=== PATIENT | male | born 1980 | race African-American/Black ===

== ENCOUNTER → 2017-02-13 | Outpatient (CLI) | payer MEDICAID ==
[2017-02-13 15:09] LABS: ABSOLUTE BASOPHILS # (AUTO) 0.1 10^3/uL (0.0-0.2); ABSOLUTE EOSINOPHILS # (AUTO) 0.2 10^3/uL (0.0-0.6); ABSOLUTE LYMPHOCYTES (AUTO) 1.1 10^3/uL (0.5-4.7); ABSOLUTE MONOCYTES (AUTO) 0.5 10^3/uL (0.1-1.4); ABSOLUTE NEUT (AUTO) 1.6 10^3/uL (1.7-8.2); BASOPHILS % (AUTO) 1.5 % (0-2); EOSINOPHILS % (AUTO) 6.5 % (0-6); HEMATOCRIT 33.1 % (37.9-51.0); HEMOGLOBIN 10.9 g/dL (13.5-17.0); HGB HCT DIFFERENCE -0.4; MEAN CORPUSCULAR HEMOGLOBIN 25.7 pg (27.0-33.4); MEAN CORPUSCULAR VOLUME 78 fl (80-97); MONOCYTES % (AUTO) 15.3 % (3-13); RED BLOOD COUNT 4.25 10^6/uL (4.35-5.55); RED CELL DISTRIBUTION WIDTH 16.4 % (11.5-14.0); SEGMENTED NEUTROPHILS % (AUTO) 45.7 % (42-78); WHITE BLOOD COUNT 3.4 10^3/uL (4.0-10.5)
[2017-02-13 15:17] LABS: PROTHROMBIN TIME 15.4 SEC (11.4-15.4)
[2017-02-13 15:29] LABS: ALANINE AMINOTRANSFERASE 21 U/L (21-72); ALBUMIN 3.7 g/dL (3.5-5.0); ALKALINE PHOSPHATASE 74 U/L (38-126); ANION GAP 11 (5-19); ASPARTATE AMINO TRANSFERASE 17 U/L (17-59); BILIRUBIN,DIRECT 0.1 mg/dL (0.0-0.4); BILIRUBIN,TOTAL 0.9 mg/dL (0.2-1.3); BLOOD UREA NITROGEN 12 mg/dL (7-20); CALCIUM 9.2 mg/dL (8.4-10.2); CARBON DIOXIDE 29 mmol/L (22-30); CHLORIDE 104 mmol/L (98-107); CHOLESTEROL 151.84 mg/dL (0-200); CREATININE RESULT 0.56 mg/dL (0.52-1.25); Direct HDL 38 mg/dL (>40); GLUCOSE 90 mg/dL (75-110); POTASSIUM 4.5 mmol/L (3.6-5.0); SODIUM 144.1 mmol/L (137-145); TOTAL PROTEIN 7.2 g/dL (6.3-8.2); TRIGLYCERIDES 66 mg/dL (<150)
[2017-02-13 15:40] LABS: DIRECT LDL 81 mg/dL (<100)
== END ==
LOC: OD 14:10
PROVIDERS: ATTEND Family Medicine
DX: Z79.01 Long term (current) use of anticoagulants (principal); Z13.228 Encounter for screening for other metabolic disorders
CPT/HCPCS: 36415; 80053; 80061; 84443; 85025; 85610

== ENCOUNTER 2017-03-23 10:44 | Outpatient (CLI) | payer MEDICAID ==
[~2017-03-23 10:44] MED LIST: FERUMOXYTOL (NON-ESRD) 510 MG/NS 100 ML IV PRN; NORMAL SALINE 250 ML IV PRN
[2017-03-23 11:13] VITALS: BP 108/69
== END 2017-03-23 12:43 | disposition home or self-care (01) ==
LOC: 5TH 10:44 → II 10:44
PROVIDERS: ATTEND Internal Medicine
PROC: 3E033GC Introduction of Other Therapeutic Substance into Peripheral Vein, Percutaneous Approach (ICD-10-PCS; principal; 2017-03-23)
DX: N18.2 Chronic kidney disease, stage 2 (mild) (principal); D63.1 Anemia in chronic kidney disease
CPT/HCPCS: 96365; Q0138; 96367

== ENCOUNTER 2017-03-30 13:20 | Outpatient (CLI) | payer MEDICAID ==
[2017-03-30 14:32] VITALS: BP 102/50
== END 2017-03-30 14:36 | disposition home or self-care (01) ==
LOC: II 13:20 → 5TH 13:21 → II 14:36
PROVIDERS: ATTEND Internal Medicine
PROC: 3E033GC Introduction of Other Therapeutic Substance into Peripheral Vein, Percutaneous Approach (ICD-10-PCS; principal; 2017-03-30)
DX: N18.2 Chronic kidney disease, stage 2 (mild) (principal); D63.1 Anemia in chronic kidney disease
CPT/HCPCS: 96365; Q0138

== ENCOUNTER → 2017-04-12 | Outpatient (CLI) | payer MEDICAID ==
[2017-04-12 15:35] LABS: ABSOLUTE BASOPHILS # (AUTO) 0.1 10^3/uL (0.0-0.2); ABSOLUTE EOSINOPHILS # (AUTO) 0.4 10^3/uL (0.0-0.6); ABSOLUTE LYMPHOCYTES (AUTO) 2.3 10^3/uL (0.5-4.7); ABSOLUTE MONOCYTES (AUTO) 0.8 10^3/uL (0.1-1.4); ABSOLUTE NEUT (AUTO) 2.4 10^3/uL (1.7-8.2); BASOPHILS % (AUTO) 0.9 % (0-2); EOSINOPHILS % (AUTO) 6.1 % (0-6); HEMATOCRIT 32.2 % (37.9-51.0); HEMOGLOBIN 10.3 g/dL (13.5-17.0); HGB HCT DIFFERENCE -1.3; LYMPHOCYTES % (AUTO) 38.3 % (13-45); MEAN CORPUSCULAR HEMOGLOBIN 25.8 pg (27.0-33.4); MEAN CORPUSCULAR HGB CONC 32.1 g/dL (32.0-36.0); MEAN CORPUSCULAR VOLUME 80 fl (80-97); MONOCYTES % (AUTO) 14.1 % (3-13); RED CELL DISTRIBUTION WIDTH 15.8 % (11.5-14.0); SEGMENTED NEUTROPHILS % (AUTO) 40.6 % (42-78)
[2017-04-12 16:00] LABS: ALANINE AMINOTRANSFERASE 19 U/L (21-72); ALBUMIN 3.7 g/dL (3.5-5.0); ALKALINE PHOSPHATASE 60 U/L (38-126); ANION GAP 9 (5-19); ASPARTATE AMINO TRANSFERASE 19 U/L (17-59); BILIRUBIN,DIRECT 0.3 mg/dL (0.0-0.4); BILIRUBIN,TOTAL 0.7 mg/dL (0.2-1.3); BLOOD UREA NITROGEN 17 mg/dL (7-20); C-REACTIVE PROTEIN 41.4 mg/L (<10.0); CALCIUM 9.1 mg/dL (8.4-10.2); CARBON DIOXIDE 31 mmol/L (22-30); CHLORIDE 101 mmol/L (98-107); CREATININE RESULT 0.64 mg/dL (0.52-1.25); GLUCOSE 85 mg/dL (75-110); POTASSIUM 4.1 mmol/L (3.6-5.0); SODIUM 140.6 mmol/L (137-145); TOTAL PROTEIN 7.6 g/dL (6.3-8.2)
--- NOTE | 2017-04-12 16:11 | RADIOLOGY REPORT (SQ) ---
EXAM DESCRIPTION: PELVIS AP COMPLETED DATE/TIME: 04/12/2017 3:43 pm REASON FOR STUDY: PRESSURE ULCER RT BUTTOCK STAGE IV L89.314 PRESSURE ULCER OF RIGHT BUTTOCK, STAGE 4 COMPARISON: None. NUMBER OF VIEWS: One view TECHNIQUE: AP Pelvis LIMITATIONS: None. FINDINGS: MINERALIZATION: Normal. HIPS: No acute fracture or dislocation. No worrisome bone lesions. Advanced degenerative changes of the right and left hip. PELVIS AND SACRUM: No acute fracture or dislocation. No worrisome bone lesions. PUBIS AND ISCHIUM: No acute fracture. No definite destructive bony lesions are identified. LOWER LUMBAR SPINE: No significant findings as visualized. SOFT TISSUES: Appears to be a soft tissue defect seen posteriorly adjacent to the right ischium. The re appears to be packing material within this soft tissue defect. OTHER: No other significant finding. IMPRESSION: Soft tissue defect seen adjacent to the right ischium with packing material. No definit e destructive bony lesions are identified. Advanced degenerative changes of the hips, right greater the left. No acute fracture or dislocation identified TECHNICAL DOCUMENTATION: JOB ID: [id number] [employer]- All Rights Reserved
[2017-04-12 16:22] LABS: ERYTHROCYTE SEDIMENTATION RATE 35 mm/hr (0-15)
== END ==
LOC: WC 15:00
PROVIDERS: ATTEND Nurse Practitioner Family
DX: L89.314 Pressure ulcer of right buttock, stage 4 (principal)
CPT/HCPCS: 36415; 72170; 80053; 85025; 85652; 86140

== ENCOUNTER → 2017-04-17 | Outpatient (CLI) | payer MEDICAID ==
--- NOTE | 2017-04-18 09:23 | RADIOLOGY REPORT (SQ) ---
EXAM DESCRIPTION: NM 3 PHASE BONE SCAN COMPLETED DATE/TIME: 04/17/2017 4:38 pm REASON FOR STUDY: PRESSURE ULCER OF RIGHT BUTTOCK L89.314 PRESSURE ULCER OF RIGHT BUTTOCK, STAGE 4 COMPARISON: Pelvis films 04/12/2017, 05/31/2016 RADIONUCLIDE AND DOSE: 21.6 millicuries Tc99m MDP. The route of agent administration: Intravenous. ADDITIONAL DRUGS AND DOSES: None. TECHNIQUE: Following injection of the radiopharmaceutical, serial blood flow images acquired. Equil ibrium blood pool images then acquired. Routine delayed images at 3 hours acquired of the areas of c linical concern with additional focused images as needed. AREA OF INTEREST: Bony pelvis, right and left ischium LIMITATIONS: None. FINDINGS: VASCULAR FLOW IMAGES: No asymmetry or focal areas of hyperemia. BLOOD POOL IMAGES: Mild increased uptake over the right ischium region on BONES: 3 hour delay images demonstrate mild increased uptake over the right ischium, sparing the acet abulum and proximal femur. IMPRESSION: Mild increased uptake over the right ischium on the blood pool images and delayed images , worrisome for low-grade infection. No extension of abnormal increased uptake into the right femora l head or remainder of the bony acetabulum. COMMENT: PQRS 3570F: Current bone scan is compared with any available plain radiographs, prior bone scans, and CT/MRI. TECHNICAL DOCUMENTATION: JOB ID: [id number]- All Rights Reserved
== END ==
LOC: RAD 11:50
PROVIDERS: ATTEND Nurse Practitioner Family
DX: L89.314 Pressure ulcer of right buttock, stage 4 (principal)
CPT/HCPCS: 78315; A9561; Q9969

== ENCOUNTER → 2017-04-24 | Day surgery (SDC) | payer MEDICAID ==
[~2017-04-24] MED LIST changes: +CEFEPIME 2 GM/D5W RTU 2 GM/50 ML RTUPB IV ONE; +DAPTOMYCIN IV ONE; -FERUMOXYTOL (NON-ESRD) 510 MG/NS 100 ML IV PRN; +NORMAL SALINE 10 ML SDV (AFTER EACH USE) IV PRN; +NORMAL SALINE 10 ML SDV (SCHEDULED) IV SCH; -NORMAL SALINE 250 ML IV PRN; +NORMAL SALINE IV ONE
--- NOTE | 2017-04-24 13:56 | RADIOLOGY REPORT (SQ) ---
EXAM DESCRIPTION: PICC INSERTION; FLUORO/CV PLACEMENT; U/S GUIDE FOR VASCULAR ACCESS COMPLETED DATE/TIME: 04/24/2017 1:43 pm REASON FOR STUDY: IV ANTIBIOTICS M86.159 OTHER ACUTE OSTEOMYELITIS, UNSPECIFIED FEMUR COMPARISON: AP chest 08/25/2014 FLUOROSCOPY TIME: 11 seconds 2 digital chest radiographs and 1 ultrasound images saved to PACS. TECHNIQUE: Fluoroscopic and ultrasound guided PICC placement. LIMITATIONS: None. PROCEDURE: After written consent and assessment were obtained, the patient was brought into the fluo roscopy room and place supine on the table. Ultrasound was used on the patient's left arm for PICC a ccess. The last arm was prepped and draped in a sterile fashion along with the ultrasound probe. The entry site was anesthetized with 3 mL of 1% lidocaine. A 21 gauge 7 cm needle was advanced through th e skin and into the left basilic vein under live ultrasound guidance. An ultrasound image was saved to PACS confirming access site. A .018 guide wire was then inserted through the needle and into the venous system. The needle was the removed and an 11 blade scalpel was used to make a 1cm skin incisio n. A 5 fr peel-away sheath was advanced over the wire and into the venous system. A measurement was then made using the existing wire and live fluoroscopic guidance. The wire was then removed and the t rimmed. The PICC was advanced through the peel-away sheath and into the venous system. The peel-away sheath was removed and the catheter was adhered to the patients arm with a stat lock. The catheter wa s then aspirated and flushed and a sterile bandage was placed over the access site. A fluoroscopic s pot image was saved to PACS confirming the catheter tip within the superior vena cava. IMPRESSION: SUCCESSFUL PLACEMENT OF A 5 FR DUAL LUMEN 41 CM PICC IN THE left basilic VEIN. COMMENT: Patient medication list reviewed: Yes- Quality ID# 130:Eligible professional attests to doc umenting in the medical record they obtained, updated, or reviewed the patient's current medications. . Quality ID 145: Final reports for procedures using fluoroscopy that document radiation exposure ileana nicole, or exposure time and number of fluorographic images (if radiation exposure indices are not avail able) Quality ID #76: The patient was prepped and draped using maximum sterile barrier technique including cap, mask, sterile gown, sterile gloves, a large sterile sheet, hand hygiene, and 2% Chlorhexidine fo r cutaneous antisepsis. When ultrasound is used, sterile ultrasound techniques are followed requiring sterile gel and sterile probes. TECHNICAL DOCUMENTATION: JOB ID: [id number] [employer]- All Rights Reserved
[2017-04-24 15:47] VITALS: BP 141/87
== END ==
LOC: RAD 12:47
PROVIDERS: ATTEND Nurse Practitioner Family
PROC: 05HC33Z Insertion of Infusion Device into Left Basilic Vein, Percutaneous Approach (ICD-10-PCS; principal; 2017-04-24)
DX: M86.159 Other acute osteomyelitis, unspecified femur (principal)
CPT/HCPCS: 96375; 96365; 36569; 77001; 76937; J0878; J0692; J1642

== ENCOUNTER 2017-05-30 06:17 | Day surgery (SDC) | payer MEDICAID ==
[2017-05-25 10:54] LABS: HEMATOCRIT 29.7 % (37.9-51.0); HEMOGLOBIN 9.7 g/dL (13.5-17.0); HGB HCT DIFFERENCE -0.6; MEAN CORPUSCULAR HEMOGLOBIN 26.3 pg (27.0-33.4); MEAN CORPUSCULAR HGB CONC 32.8 g/dL (32.0-36.0); MEAN CORPUSCULAR VOLUME 80 fl (80-97); RED BLOOD COUNT 3.71 10^6/uL (4.35-5.55); RED CELL DISTRIBUTION WIDTH 14.7 % (11.5-14.0); WHITE BLOOD COUNT 8.1 10^3/uL (4.0-10.5)
[2017-05-25 11:21] LABS: ANION GAP 11 (5-19); BLOOD UREA NITROGEN 8 mg/dL (7-20); CALCIUM 9.1 mg/dL (8.4-10.2); CARBON DIOXIDE 30 mmol/L (22-30); CHLORIDE 98 mmol/L (98-107); CREATININE RESULT 0.58 mg/dL (0.52-1.25); GLUCOSE 99 mg/dL (75-110); POTASSIUM 4.6 mmol/L (3.6-5.0); SODIUM 139.2 mmol/L (137-145)
[~2017-05-30 06:17] MED LIST changes: +CEFAZOLIN 1 GM/D5W RTU 1 GM/50 ML RTUPB IV PRN; -CEFEPIME 2 GM/D5W RTU 2 GM/50 ML RTUPB IV ONE; -DAPTOMYCIN IV ONE; +LIDOCAINE 0.5% INJ-PF (5 MG/ML) 50 ML SDV INJ PRN; -NORMAL SALINE 10 ML SDV (AFTER EACH USE) IV PRN; -NORMAL SALINE 10 ML SDV (SCHEDULED) IV SCH; -NORMAL SALINE IV ONE; +RINGERS SOLUTION,LACTATED 1,000 ML IV PRN
[2017-05-30] MEDS ORDERED: COLLAGENASE CLOSTRIDIUM HIST. OINT 30 GM ONE (06:45)
[2017-05-30] MEDS ORDERED: SILVER SULFADIAZINE 1% CREAM 25 GM ONE (06:45)
[2017-05-30] MEDS ORDERED: BUPIVACAINE HCL 0.25 % INJ/PF (2.5 MG/1 ML) 30 ML VIAL ONE (06:45)
[2017-05-30] MEDS ORDERED: LIDOCAINE 0.5% INJ-PF (5 MG/ML) 50 ML SDV ONE (06:45)
[2017-05-30] MEDS ORDERED: BACITRACIN INJ 50,000 UNIT VIAL ONE (06:45)
[2017-05-30] MEDS ORDERED: FENTANYL CITRATE INJ/PF 100 MCG/2 ML AMPUL ONE (07:48)
[2017-05-30] MEDS ORDERED: KETAMINE HCL INJ 500 MG/10 ML VIAL ONE (07:48)
[2017-05-30] MEDS ORDERED: PROPOFOL INJ 200 MG/20 ML VIAL IV ONE (07:49)
[2017-05-30] MEDS ORDERED: MIDAZOLAM 2 MG/2 ML INJ ONE (07:49)
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
[2017-05-30] MEDS ORDERED: DIPHENHYDRAMINE HCL 50 MG/ML VIAL IV PRN (08:32)
[2017-05-30] MEDS ORDERED: MORPHINE SULFATE 10 MG/ML INJ IV PRN (08:32)
[2017-05-30] MEDS ORDERED: OXYCODONE-ACETAMINOPHEN 5-325 MG TABLET PO PRN ×2 (08:32)
[2017-05-30] MEDS ORDERED: PROMETHAZINE HCL INJ 25 MG/1 ML VIAL IV PRN ×2 (08:32)
[2017-05-30] MEDS ORDERED: FENTANYL CITRATE INJ/PF 100 MCG/2 ML AMPUL IV PRN ×3 (08:32)
[2017-05-30] MEDS ORDERED: MEPERIDINE HCL/PF INJ 25 MG/1 ML DISP.SYRIN IV PRN (08:32)
--- NOTE | 2017-05-30 08:48 | PDOC DISCHARGE SUMMARY ---
Discharge Summary (SDC) - Discharge Final Diagnosis: #1 right ischial pressure ulcer. 2. Paralysis. 3. History of DVT. 4. Hypertension. Date of Surgery: 05/30/17 Discharge Date: 05/30/17 Condition: Fair Treatment or Instructions: Discharge home [after recovery per ASU criteria]. Diet , as tolerated, when fully awake advance as tolerated. Activities within moderation encouraged. Follow up in wound clinic by appointment in about 1 week. Call for appointment. Leave wounds [covered], [keep clean and dry, may resume back after about 3 days. Meds per med rec. May shower/bathe [in 48 hrs], [try to keep operated area as dry as possible]. Discharge Diet: As Tolerated Respiratory Treatments at Home: Deep Breathing/Coughing Discharge Activity: Activity As Tolerated Report the Following to Your Physician Immediately: Shortness of Breath, Unusual Bleeding
--- NOTE | 2017-05-30 08:51 | Operative Report ---
Operative Report DATE OF SURGERY: 05/30/17 PREOPERATIVE DIAGNOSIS: #1 right ischial pressure ulcer. 2. Paralysis. 3. History of DVT. 4. Hypertension. POSTOPERATIVE DIAGNOSIS: #1 right ischial pressure ulcer. 2. Paralysis. 3. History of DVT. 4. Hypertension. OPERATION: Debridement of chronic right ischial pressure ulcer. SURGEON: SHAHZAD PARRA LANDSCAPER HELPER: BRIANNA FLORES ANESTHESIA: LMAC TISSUE REMOVED OR ALTERED: Skin scar and subcutaneous tissue from right ischial pressure ulcer. COMPLICATIONS: None ESTIMATED BLOOD LOSS: 10 mL. INTRAOPERATIVE FINDINGS: Of a large right ischial pressure ulcer. Measuring about 4 x 5 cm opening. In the depth approximately 10 x 9 x 3 cm deep. The floor consists of more muscle and granulating tissue over the ischium. The removed tissue had been scar, nonhealing and necrosis. The opening to the wound was enlarged to allow access for wound healing measurements. Also debrided. PROCEDURE: PROCEDURE: The right ischial and buttock area was prepared with [Betadine] and draped out with sterile linen. After the"universal time-out", in which it was confirmed that the patient [did receive antibiotic], the procedure commenced. The patient was appropriately anesthetized. The wound was probed. The wound was debrided of non viable tissue using cautery with removal of loose debris, as well. The wound was irrigated with [ Peroxide] . Interrupted 3-0 PDS sutures were taken to hemostasis. The wound was now irrigated with saline and [Surgicel] placed within it, dressed with [ Kerlix] and the procedure concluded. The general assistant provided retraction, thus facilitating the operative view. Controlled bleeding. The general assistant also followed the suturing, thus facilitating accurate suture placement. Applied dressings.
[2017-05-30] MEDS: FENTANYL CITRATE INJ/PF 100 MCG/2 ML AMPUL ONE ×2 (09:10→09:15)
[2017-05-30] MEDS ORDERED: OXYCODONE HCL IR 5 MG TABLET PO PRN (09:26)
[2017-05-30 12:27] VITALS: BP 125/70
== END 2017-05-30 10:50 | disposition home or self-care (01) ==
LOC: OROUT 06:17
PROVIDERS: ATTEND Surgery
PROC: 0JBL0ZZ Excision of Right Upper Leg Subcutaneous Tissue and Fascia, Open Approach (ICD-10-PCS; principal; 2017-05-30 08:00)
DX: L89.219 Pressure ulcer of right hip, unspecified stage (principal); G82.20 Paraplegia, unspecified; M26.629 Arthralgia of temporomandibular joint, unspecified side; I10 Essential (primary) hypertension; G47.30 Sleep apnea, unspecified; F17.210 Nicotine dependence, cigarettes, uncomplicated; Z79.899 Other long term (current) drug therapy; Z86.718 Personal history of other venous thrombosis and embolism; Z86.14 Personal history of Methicillin resistant Staphylococcus aureus infection; Z95.0 Presence of cardiac pacemaker; Z79.01 Long term (current) use of anticoagulants; Z87.828 Personal history of other (healed) physical injury and trauma
CPT/HCPCS: 36415; 85027; 80048; 88305 ×2; 11042; J2250; J3490 ×3; J0690; J3010; S0020; J2704; 300

== ENCOUNTER → 2017-06-19 | Outpatient (CLI) | payer MEDICAID ==
--- NOTE | 2017-06-19 17:15 | RADIOLOGY REPORT (SQ) ---
EXAM DESCRIPTION: PELVIS AP COMPLETED DATE/TIME: 06/19/2017 3:34 pm REASON FOR STUDY: PRESSURE ULCER R BUTTOCKS STAGE 4 L89.314 PRESSURE ULCER OF RIGHT BUTTOCK, STAGE 4 COMPARISON: 04/12/2017 NUMBER OF VIEWS: One view TECHNIQUE: AP Pelvis LIMITATIONS: None. FINDINGS: MINERALIZATION: Normal. HIPS: No acute fracture or dislocation. No worrisome bone lesions. PELVIS AND SACRUM: No acute fracture or dislocation. No worrisome bone lesions. PUBIS AND ISCHIUM: No acute fracture. LOWER LUMBAR SPINE: No significant findings as visualized. SOFT TISSUES: The previously described apparent soft tissue defect adjacent to the right ischium is a gain identified containing what is presumably packing material. Clinical correlation is recommended. OTHER: No other significant finding. IMPRESSION: No significant interval change. Findings as noted above. TECHNICAL DOCUMENTATION: JOB ID: [id number] [employer]- All Rights Reserved
--- NOTE | 2017-06-19 17:42 | RADIOLOGY REPORT (SQ) ---
EXAM DESCRIPTION: NM 3 PHASE BONE SCAN COMPLETED DATE/TIME: 06/19/2017 4:19 pm REASON FOR STUDY: PRESSURE ULCER RIGHT BUTTOCKS STAGE 4 (L89.314) L89.314 PRESSURE ULCER OF RIGHT B ESTHELATOCK, STAGE 4 COMPARISON: AP pelvis 06/19/2017, 04/12/2017, 07/17/2014 Prior bone scan 04/17/2017 RADIONUCLIDE AND DOSE: 21.9 millicuries Tc99m MDP. The route of agent administration: Intravenous. ADDITIONAL DRUGS AND DOSES: None. TECHNIQUE: Following injection of the radiopharmaceutical, serial blood flow images acquired. Equil ibrium blood pool images then acquired. Routine delayed images at 3 hours acquired of the areas of c linical concern with additional focused images as needed. AREA OF INTEREST: Bony pelvis, bilateral hips LIMITATIONS: None. FINDINGS: VASCULAR FLOW IMAGES: Increased blood flow to the right hip. BLOOD POOL IMAGES: Increased blood pool activity over the right gluteal soft tissues. BONES: Normal visualization without areas of photopenia or increased bony uptake of radiopharmaceutic al. KIDNEYS: Symmetric excretion without obstruction. OTHER: No other significant finding. IMPRESSION: There is increased blood flow and blood pool activity over the right gluteal region in t he area of the ulcer. No abnormal increased uptake over the ischium worrisome for active osteomyelit is COMMENT: PQRS 3570F: Current bone scan is compared with any available plain radiographs, prior bone scans, and CT/MRI. TECHNICAL DOCUMENTATION: JOB ID: [id number]- All Rights Reserved
== END ==
LOC: RAD 11:11
PROVIDERS: ATTEND Nurse Practitioner Family
DX: L89.314 Pressure ulcer of right buttock, stage 4 (principal)
CPT/HCPCS: 72170; 78315; A9561; Q9969

== ENCOUNTER → 2017-07-05 | Outpatient (CLI) | payer MEDICAID ==
--- NOTE | 2017-07-05 17:27 | RADIOLOGY REPORT (SQ) ---
EXAM DESCRIPTION: CHEST PA/LATERAL COMPLETED DATE/TIME: 07/05/2017 4:54 pm REASON FOR STUDY: PRE OP COMPARISON: 08/25/2014 EXAM PARAMETERS: NUMBER OF VIEWS: two views TECHNIQUE: Digital Frontal and Lateral radiographic views of the chest acquired. RADIATION DOSE: NA LIMITATIONS: none FINDINGS: LUNGS AND PLEURA: No opacities, masses or pneumothorax. No pleural effusion. MEDIASTINUM AND HILAR STRUCTURES: No masses or contour abnormalities. HEART AND VASCULAR STRUCTURES: Heart normal size. No evidence for failure. BONES: No acute findings. HARDWARE: None in the chest. OTHER: No other significant finding. IMPRESSION: NO SIGNIFICANT RADIOGRAPHIC FINDING IN THE CHEST. TECHNICAL DOCUMENTATION: JOB ID: [id number] [employer]- All Rights Reserved
== END ==
LOC: OD 16:25
PROVIDERS: ATTEND Nurse Practitioner Family
DX: Z01.818 Encounter for other preprocedural examination (principal)
CPT/HCPCS: 71020

== ENCOUNTER → 2017-09-28 | Outpatient (CLI) | payer MEDICAID ==
--- NOTE | 2017-09-28 15:35 | RADIOLOGY REPORT (SQ) ---
EXAM DESCRIPTION: NM 3 PHASE BONE SCAN COMPLETED DATE/TIME: 09/28/2017 2:01 pm REASON FOR STUDY: L89.314 PRESSURE ULCER OF RIGHT BUTTOCK, STAGE 4 L89.314 PRESSURE ULCER OF RIGHT BUTTOCK, STAGE 4 COMPARISON: Plain radiographs 06/19/2017 bone scan 06/19/2017 RADIONUCLIDE AND DOSE: 21.4 millicuries Tc99m HDP The route of agent administration: Intravenous. ADDITIONAL DRUGS AND DOSES: None. TECHNIQUE: Following injection of the radiopharmaceutical, serial blood flow images acquired. Equil ibrium blood pool images then acquired. Routine delayed images at 3 hours acquired of the areas of c linical concern with additional focused images as needed. AREA OF INTEREST: Right ischium LIMITATIONS: None. FINDINGS: VASCULAR FLOW IMAGES: Hyperemia involving the posterior right hemipelvis. BLOOD POOL IMAGES: Asymmetry with generalized soft tissue uptake in the area of the right ischium and laterally. BONES: Normal visualization without areas of photopenia or increased bony uptake of radiopharmaceutic al. KIDNEYS: Kidneys not imaged. OTHER: No other significant finding. IMPRESSION: Findings compatible cellulitis inflammatory soft tissues. No findings to suggest osteom yelitis. COMMENT: Quality measure 147: Current bone scan is compared with any available plain radiographs, p rior bone scans, and CT/MRI. TECHNICAL DOCUMENTATION: JOB ID: [id number]- All Rights Reserved
== END ==
LOC: RAD 10:04
PROVIDERS: ATTEND Nurse Practitioner Family
DX: L89.314 Pressure ulcer of right buttock, stage 4 (principal); M86.68 Other chronic osteomyelitis, other site
CPT/HCPCS: 78315; A9561; Q9969

== ENCOUNTER 2017-11-21 18:47 | Emergency (ER) | payer MEDICAID ==
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
[2017-11-21 19:31] VITALS: BP 103/60
[2017-11-21] MEDS ORDERED: ENOXAPARIN SODIUM INJ 80 MG/0.8 ML DISP.SYRIN SUBCUT ONE ×2 (19:33→21:01)
[2017-11-21 20:37] LABS: ABSOLUTE BASOPHILS # (AUTO) 0.1 10^3/uL (0.0-0.2); ABSOLUTE EOSINOPHILS # (AUTO) 0.2 10^3/uL (0.0-0.6); ABSOLUTE LYMPHOCYTES (AUTO) 1.4 10^3/uL (0.5-4.7); ABSOLUTE NEUT (AUTO) 8.6 10^3/uL (1.7-8.2); BASOPHILS % (AUTO) 0.6 % (0-2); EOSINOPHILS % (AUTO) 1.8 % (0-6); HEMOGLOBIN 10.7 g/dL (13.5-17.0); LYMPHOCYTES % (AUTO) 12.2 % (13-45); MEAN CORPUSCULAR HEMOGLOBIN 25.9 pg (27.0-33.4); MEAN CORPUSCULAR HGB CONC 32.3 g/dL (32.0-36.0); MEAN CORPUSCULAR VOLUME 80 fl (80-97); MONOCYTES % (AUTO) 8.7 % (3-13); PLATELET COUNT 439 10^3/uL (150-450); RED BLOOD COUNT 4.12 10^6/uL (4.35-5.55); RED CELL DISTRIBUTION WIDTH 17.4 % (11.5-14.0); SEGMENTED NEUTROPHILS % (AUTO) 76.7 % (42-78); TOTAL CELLS COUNTED % (AUTO) 100 %; WHITE BLOOD COUNT 11.2 10^3/uL (4.0-10.5)
[2017-11-21 20:43] LABS: ALANINE AMINOTRANSFERASE 19 U/L (21-72); ALBUMIN 3.7 g/dL (3.5-5.0); ALKALINE PHOSPHATASE 65 U/L (38-126); ANION GAP 7 (5-19); ASPARTATE AMINO TRANSFERASE 17 U/L (17-59); BILIRUBIN,DIRECT 0.2 mg/dL (0.0-0.4); BILIRUBIN,TOTAL 0.6 mg/dL (0.2-1.3); BLOOD UREA NITROGEN 16 mg/dL (7-20); CALCIUM 9.5 mg/dL (8.4-10.2); CARBON DIOXIDE 29 mmol/L (22-30); CHLORIDE 104 mmol/L (98-107); GLUCOSE 109 mg/dL (75-110); SODIUM 140.4 mmol/L (137-145); TOTAL PROTEIN 7.2 g/dL (6.3-8.2)
[2017-11-21] MEDS ORDERED: OXYCODONE HCL IR 5 MG TABLET PO ONE (21:00)
== END 2017-11-21 21:20 | disposition home or self-care (01) ==
LOC: ER 18:47
DX: I82.403 Acute embolism and thrombosis of unspecified deep veins of lower extremity, bilateral (principal); M79.604 Pain in right leg; M79.605 Pain in left leg; T14.8XXS Other injury of unspecified body region, sequela; G82.20 Paraplegia, unspecified; W34.00XS Accidental discharge from unspecified firearms or gun, sequela; R00.0 Tachycardia, unspecified; D72.829 Elevated white blood cell count, unspecified; F17.200 Nicotine dependence, unspecified, uncomplicated; I10 Essential (primary) hypertension; Z88.1 Allergy status to other antibiotic agents; Z86.14 Personal history of Methicillin resistant Staphylococcus aureus infection
CPT/HCPCS: 99283; 96372; 36415; 85025; 80053; J1650; J3490

== ENCOUNTER 2017-11-28 00:09 | Emergency (ER) | payer MEDICAID ==
[2017-11-28] MEDS ORDERED: CLONIDINE 0.1 MG/24 HR PATCH.TDWK TD ONE (01:04)
[2017-11-28] MEDS ORDERED: ONDANSETRON 4 MG TAB.RAPDIS PO ONE (01:04)
[2017-11-28] MEDS ORDERED: ONDANSETRON ODT 4 MG TAB (6 TAB/ER DISP) PO PRN (01:10)
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
[2017-11-28 01:30] VITALS: BP 110/82
== END 2017-11-28 01:30 | disposition home or self-care (01) ==
LOC: ER 00:09
DX: T40.1X1A Poisoning by heroin, accidental (unintentional), initial encounter (principal); Y92.003 Bedroom of unspecified non-institutional (private) residence as the place of occurrence of the external cause; R11.2 Nausea with vomiting, unspecified; I10 Essential (primary) hypertension; F17.200 Nicotine dependence, unspecified, uncomplicated; Z88.1 Allergy status to other antibiotic agents
CPT/HCPCS: 99285; S0119; J3490

== ENCOUNTER → 2019-07-31 | Outpatient (CLI) | payer MEDICAID ==
--- NOTE | 2019-07-31 11:12 | RADIOLOGY REPORT (SQ) ---
EXAM DESCRIPTION: PELVIS AP COMPLETED DATE/TIME: 07/31/2019 10:58 am REASON FOR STUDY: PRESSURE ULCER OF RIGHT BUTTOCK, STAGE 4 L89.314 PRESSURE ULCER OF RIGHT BUTTOCK, STAGE 4 T14.8XXD OTHER INJURY OF UNSPECIFIED BODY REGION, SUBS COMPARISON: None. NUMBER OF VIEWS: One view TECHNIQUE: AP Pelvis LIMITATIONS: None. FINDINGS: MINERALIZATION: Normal. HIPS: Degenerative changes in both hips with joint space narrowing. PELVIS AND SACRUM: No acute fracture or dislocation. No worrisome bone lesions. PUBIS AND ISCHIUM: No acute fracture. LOWER LUMBAR SPINE: No significant findings as visualized. SOFT TISSUES: Possible subcutaneous gas overlying the right ischium. OTHER: No other significant finding. IMPRESSION: Possible subcutaneous gas overlying the right E ischium. No conventional radiographic e vidence of osteomyelitis. Joint space narrowing in both hips. COMMENT: Pelvic fractures are often occult on plain radiographs. If strong clinical suspicion for f racture, recommend CT or MR. TECHNICAL DOCUMENTATION: JOB ID: [id number] [employer] All Rights Reserved Reading location - IP/workstation name: [email or web address]
== END ==
LOC: OD 10:30
PROVIDERS: ATTEND Nurse Practitioner Family
DX: L89.314 Pressure ulcer of right buttock, stage 4 (principal); T14.8XXD Other injury of unspecified body region, subsequent encounter; X58.XXXD Exposure to other specified factors, subsequent encounter
CPT/HCPCS: 72170

== ENCOUNTER → 2019-11-05 | Outpatient (CLI) | payer MEDICAID ==
[2019-11-05 17:28] LABS: ABSOLUTE EOSINOPHILS # (AUTO) 0.1 10^3/uL (0.0-0.6); ABSOLUTE LYMPHOCYTES (AUTO) 0.9 10^3/uL (0.5-4.7); ABSOLUTE MONOCYTES (AUTO) 0.5 10^3/uL (0.1-1.4); ABSOLUTE NEUT (AUTO) 6.4 10^3/uL (1.7-8.2); BASOPHILS % (AUTO) 0.4 % (0-2); EOSINOPHILS % (AUTO) 1.4 % (0-6); HEMATOCRIT 28.3 % (37.9-51.0); LYMPHOCYTES % (AUTO) 10.8 % (13-45); MEAN CORPUSCULAR HEMOGLOBIN 25.8 pg (27.0-33.4); MEAN CORPUSCULAR HGB CONC 31.9 g/dL (32.0-36.0); MEAN CORPUSCULAR VOLUME 81 fl (80-97); MONOCYTES % (AUTO) 6.8 % (3-13); PLATELET COUNT 686 10^3/uL (150-450); RED CELL DISTRIBUTION WIDTH 16.7 % (11.5-14.0); SEGMENTED NEUTROPHILS % (AUTO) 80.6 % (42-78); TOTAL CELLS COUNTED % (AUTO) 100 %; WHITE BLOOD COUNT 7.9 10^3/uL (4.0-10.5)
[2019-11-05 17:53] LABS: ALBUMIN 3.1 g/dL (3.5-5.0); ALKALINE PHOSPHATASE 91 U/L (38-126); ANION GAP 8 (5-19); ASPARTATE AMINO TRANSFERASE 16 U/L (17-59); BILIRUBIN,DIRECT 0.2 mg/dL (0.0-0.4); BILIRUBIN,TOTAL 0.3 mg/dL (0.2-1.3); BLOOD UREA NITROGEN 11 mg/dL (7-20); C-REACTIVE PROTEIN 61.4 mg/L (<10.0); CALCIUM 8.8 mg/dL (8.4-10.2); CARBON DIOXIDE 28 mmol/L (22-30); CHLORIDE 104 mmol/L (98-107); GLUCOSE 126 mg/dL (75-110); POTASSIUM 4.2 mmol/L (3.6-5.0); TOTAL PROTEIN 7.4 g/dL (6.3-8.2)
[2019-11-05 18:14] LABS: ERYTHROCYTE SEDIMENTATION RATE 89 mm/hr (0-15)
--- NOTE | 2019-11-05 18:22 | RADIOLOGY REPORT (SQ) ---
EXAM DESCRIPTION: PELVIS AP COMPLETED DATE/TIME: 11/05/2019 5:26 pm REASON FOR STUDY: PRESSURE ULCER OF RT/LT BUTTOCK, STAGE 4 L89.314 PRESSURE ULCER OF RIGHT BUTTOCK, STAGE 4 L89.324 PRESSURE ULCER OF LEFT BUTTOCK, STAGE 4 COMPARISON: Bone scan 09/28/2017 Plain films 06/19/2017, 07/31/2019 NUMBER OF VIEWS: One view TECHNIQUE: AP Pelvis LIMITATIONS: None. FINDINGS: MINERALIZATION: Bones are osteopenic HIPS: No acute fracture or dislocation. No worrisome bone lesions. PELVIS AND SACRUM: No acute fracture or dislocation. No worrisome bone lesions. PUBIS AND ISCHIUM: No acute fracture. Chronic bony resorption along the right ischium from remote prior osteomyelitis LOWER LUMBAR SPINE: No significant findings as visualized. SOFT TISSUES: There are wound-vacs over the right and left gluteal regions OTHER: No other significant finding. IMPRESSION: There are wound-vacs over the right and left gluteal regions Chronic bony resorption along the right ischium TECHNICAL DOCUMENTATION: JOB ID: [id number] [employer]- All Rights Reserved Reading location - IP/workstation name: [email or web address]
== END ==
LOC: OD 16:46
PROVIDERS: ATTEND Surgery
DX: L89.314 Pressure ulcer of right buttock, stage 4 (principal); L89.324 Pressure ulcer of left buttock, stage 4
CPT/HCPCS: 36415; 72170; 80053; 85025; 85652; 86140

== ENCOUNTER → 2019-11-26 | Outpatient (CLI) | payer MEDICAID ==
--- NOTE | 2019-11-26 14:38 | RADIOLOGY REPORT (SQ) ---
EXAM DESCRIPTION: CT ABD/PELVIS WITH IV ONLY COMPLETED DATE/TIME: 11/26/2019 2:15 pm REASON FOR STUDY: PRESSURE ULCER OF R BUTTOCK STG IV (L89.314), PRESSURE ULCER OF L BUTTOCK L89.314 PRESSURE ULCER OF RIGHT BUTTOCK, STAGE 4 L89.324 PRESSURE ULCER OF LEFT BUTTOCK, STAGE 4 COMPARISON: None. TECHNIQUE: CT scan of the abdomen and pelvis performed using helical scanning technique with dynamic intravenous contrast injection. No oral contrast. Images reviewed with lung, soft tissue, and bone windows. Reconstructed coronal and sagittal MPR images reviewed. Delayed images for evaluation of the urinary system also acquired. All images stored on PACS. All CT scanners at this facility use dose modulation, iterative reconstruction, and/or weight based d osing when appropriate to reduce radiation dose to as low as reasonably achievable (ALARA). [facility]: Dose Right [facility]: CareDose [facility]: Dose Right [facility]: Teradose 4D [facility]: [email or web address] CONTRAST TYPE AND DOSE: contrast/concentration: Isovue 350.00 mg/ml; Total Contrast Delivered: 100.0 ml; Total Saline Delivered: 72.0 ml RENAL FUNCTION: None required. The patient is less than 50 years old. RADIATION DOSE: CT Rad equipment meets quality standard of care and radiation dose reduction techniq ues were employed. CTDIvol: 5.3 - 5.4 mGy. DLP: 585 mGy-cm.. LIMITATIONS: None. FINDINGS: LOWER CHEST: No significant findings. No nodules or infiltrates. LIVER: 14 mm lesion in the dome measuring 41 HU. Lesions similar on delayed images. SPLEEN: Normal size. No focal lesions. PANCREAS: No masses. No significant calcifications. No adjacent inflammation or peripancreatic fluid collections. Pancreatic duct not dilated. GALLBLADDER: Gallstones. No inflammatory changes to suggest cholecystitis. ADRENAL GLANDS: No significant masses or asymmetry. RIGHT KIDNEY AND URETER: No solid masses. No significant calcifications. No hydronephrosis or hyd roureter. LEFT KIDNEY AND URETER: No solid masses. No significant calcifications. No hydronephrosis or hydr oureter. AORTA AND VESSELS: No aneurysm. IVC filter. RETROPERITONEUM: No retroperitoneal adenopathy, hemorrhage or masses. BOWEL AND PERITONEAL CAVITY: No masses or inflammatory changes. No free fluid or peritoneal masses. APPENDIX: Not visualized. PELVIS: No mass. No free fluid. Symmetric thickening urinary bladder wall. . ABDOMINAL WALL: No masses. No hernias. BONES: Metal projectile in the L2 vertebral body. Scattered calcifications in the spinal canal from L2 through L5. OTHER: Buttock decubitus. Myositis ossifications left buttock. IMPRESSION: 1. No evidence of osteomyelitis or abscess. 2. Incidental liver lesion, possibly a hemangioma. Follow-up dedicated liver MRI or CT is recommende d. TECHNICAL DOCUMENTATION: JOB ID: [id number] Quality ID # [id number]: Final reports with documentation of one or more dose reduction techniques (e.g., Au tomated exposure control, adjustment of the mA and/or kV according to patient size, use of iterative reconstruction technique) 2010 [employer]- All Rights Reserved Reading location - IP/workstation name: [email or web address]
== END ==
LOC: RAD 13:48
PROVIDERS: ATTEND Surgery
DX: L89.314 Pressure ulcer of right buttock, stage 4 (principal); L89.324 Pressure ulcer of left buttock, stage 4
CPT/HCPCS: 74177

== ENCOUNTER 2020-03-19 19:52 | Emergency (ER) | payer MEDICAID ==
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
--- NOTE | 2020-03-19 20:51 | EKG REPORT ---
SEVERITY:- OTHERWISE NORMAL ECG - SINUS TACHYCARDIA : Confirmed by: Shayla Moss MD 19-Mar-2020 20:50:55
[2020-03-19] MEDS ORDERED: NORMAL SALINE 250 ML IV PRN ×2 (21:12)
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
[2020-03-19 22:28] LABS: ABSOLUTE BASOPHILS # (AUTO) 0.1 10^3/uL (0.0-0.2); ABSOLUTE EOSINOPHILS # (AUTO) 0.3 10^3/uL (0.0-0.6); ABSOLUTE LYMPHOCYTES (AUTO) 1.6 10^3/uL (0.5-4.7); ABSOLUTE MONOCYTES (AUTO) 1.3 10^3/uL (0.1-1.4); ABSOLUTE NEUT (AUTO) 8.5 10^3/uL (1.7-8.2); BASOPHILS % (AUTO) 0.5 % (0-2); EOSINOPHILS % (AUTO) 2.6 % (0-6); HEMATOCRIT 23.3 % (37.9-51.0); LYMPHOCYTES % (AUTO) 13.4 % (13-45); MEAN CORPUSCULAR HGB CONC 31.8 g/dL (32.0-36.0); MEAN CORPUSCULAR VOLUME 72 fl (80-97); MONOCYTES % (AUTO) 11.4 % (3-13); PLATELET COUNT 947 10^3/uL (150-450); RED BLOOD COUNT 3.22 10^6/uL (4.35-5.55); SEGMENTED NEUTROPHILS % (AUTO) 72.1 % (42-78); TOTAL CELLS COUNTED % (AUTO) 100 %; WHITE BLOOD COUNT 11.8 10^3/uL (4.0-10.5)
[2020-03-19 22:34] LABS: HEMOGLOBIN 7.4 g/dL (13.5-17.0)
[2020-03-19 22:49] LABS: ALKALINE PHOSPHATASE 119 U/L (38-126); ANION GAP 6 (5-19); ASPARTATE AMINO TRANSFERASE 16 U/L (17-59); BILIRUBIN,DIRECT 0.1 mg/dL (0.0-0.4); BILIRUBIN,TOTAL 0.3 mg/dL (0.2-1.3); BLOOD UREA NITROGEN 6 mg/dL (7-20); CALCIUM 8.2 mg/dL (8.4-10.2); CARBON DIOXIDE 32 mmol/L (22-30); CHLORIDE 96 mmol/L (98-107); GLUCOSE 100 mg/dL (75-110); POTASSIUM 4.1 mmol/L (3.6-5.0); TOTAL PROTEIN 7.2 g/dL (6.3-8.2)
[2020-03-19] MEDS ORDERED: NORMAL SALINE 1000 ML 1,000 ML IV PRN (23:46)
[2020-03-19] MEDS ORDERED: PIPERACILLIN/TAZOBACTAM 3.375 GM VIAL IV ONE (23:51)
[2020-03-19] MEDS ORDERED: LINEZOLID 600 MG/300 ML RTUPB IV ONE (23:52)
[2020-03-20] MEDS ORDERED: LINEZOLID 600 MG/300 ML RTUPB IV ONE (00:44)
--- NOTE | 2020-03-20 08:00 | EKG REPORT ---
SEVERITY:- OTHERWISE NORMAL ECG - SINUS TACHYCARDIA : Confirmed by: Shayla Moss MD 20-Mar-2020 07:59:47
[2020-03-20 10:01] VITALS: BP 100/64
== END 2020-03-20 10:00 | disposition home or self-care (01) ==
LOC: ER 19:52
DX: D64.9 Anemia, unspecified (principal); R00.0 Tachycardia, unspecified; L89.309 Pressure ulcer of unspecified buttock, unspecified stage; L89.899 Pressure ulcer of other site, unspecified stage; G82.20 Paraplegia, unspecified; F17.210 Nicotine dependence, cigarettes, uncomplicated; I10 Essential (primary) hypertension; F32.9 Major depressive disorder, single episode, unspecified; Z79.899 Other long term (current) drug therapy; Z88.1 Allergy status to other antibiotic agents; Z86.14 Personal history of Methicillin resistant Staphylococcus aureus infection
CPT/HCPCS: 93005; 99285; 96365; 96367; 86900; 86901; 36415; 87040; 36430; 86850; 87070; 87077; 84484; 87186; 86920; 87150 ×26; 93010; P9016; J2020; J7030; J7050; J2543

== ENCOUNTER → 2020-03-19 | Outpatient (CLI) | payer MEDICAID ==
[2020-03-19 14:38] LABS: ABSOLUTE BASOPHILS # (AUTO) 0.1 10^3/uL (0.0-0.2); ABSOLUTE EOSINOPHILS # (AUTO) 0.3 10^3/uL (0.0-0.6); ABSOLUTE LYMPHOCYTES (AUTO) 1.5 10^3/uL (0.5-4.7); ABSOLUTE MONOCYTES (AUTO) 1.2 10^3/uL (0.1-1.4); ABSOLUTE NEUT (AUTO) 5.6 10^3/uL (1.7-8.2); BASOPHILS % (AUTO) 0.9 % (0-2); EOSINOPHILS % (AUTO) 3.5 % (0-6); HEMATOCRIT 21.9 % (37.9-51.0); MEAN CORPUSCULAR HEMOGLOBIN 23.6 pg (27.0-33.4); MEAN CORPUSCULAR HGB CONC 32.5 g/dL (32.0-36.0); MEAN CORPUSCULAR VOLUME 73 fl (80-97); MONOCYTES % (AUTO) 14.1 % (3-13); PLATELET COUNT 822 10^3/uL (150-450); RED BLOOD COUNT 3.02 10^6/uL (4.35-5.55); RED CELL DISTRIBUTION WIDTH 19.2 % (11.5-14.0); SEGMENTED NEUTROPHILS % (AUTO) 64.5 % (42-78); TOTAL CELLS COUNTED % (AUTO) 100 %; WHITE BLOOD COUNT 8.6 10^3/uL (4.0-10.5)
[2020-03-19 14:49] LABS: HEMOGLOBIN 7.1 g/dL (13.5-17.0)
[2020-03-19 14:55] LABS: ALBUMIN 2.7 g/dL (3.5-5.0); ALKALINE PHOSPHATASE 105 U/L (38-126); ANION GAP 7 (5-19); ASPARTATE AMINO TRANSFERASE 15 U/L (17-59); BILIRUBIN,TOTAL 0.3 mg/dL (0.2-1.3); BLOOD UREA NITROGEN 7 mg/dL (7-20); CARBON DIOXIDE 30 mmol/L (22-30); CHLORIDE 98 mmol/L (98-107); GLUCOSE 94 mg/dL (75-110); TOTAL PROTEIN 6.7 g/dL (6.3-8.2)
--- NOTE | 2020-03-19 15:25 | RADIOLOGY REPORT (SQ) ---
EXAM DESCRIPTION: PELVIS AP IMAGES COMPLETED DATE/TIME: 03/19/2020 3:02 pm REASON FOR STUDY: PRESSURE ULCER OF RIGHT BUTTOCK, STAGE 4 L89.314 PRESSURE ULCER OF RIGHT BUTTOCK, STAGE 4 L89.324 PRESSURE ULCER OF LEFT BUTTOCK, STAGE 4 COMPARISON: 0 pelvic x-ray dated 11/05/2019. CT dated 11/26/2019. NUMBER OF VIEWS: One view TECHNIQUE: AP Pelvis LIMITATIONS: None. FINDINGS: MINERALIZATION: Normal. HIPS: No acute fracture or dislocation. No worrisome bone lesions. PELVIS AND SACRUM: No acute fracture or dislocation. No worrisome bone lesions. PUBIS AND ISCHIUM: Chronic sclerosis and disruption of the right and left ischium. LOWER LUMBAR SPINE: No significant findings as visualized. SOFT TISSUES: No findings. OTHER: No other significant finding. IMPRESSION: CHRONIC CHANGES PREVIOUSLY SEEN ON CT. NO ACUTE FINDINGS. COMMENT: Pelvic fractures are often occult on plain radiographs. If strong clinical suspicion for f racture, recommend CT or MR. TECHNICAL DOCUMENTATION: JOB ID: [id number] 2010 [employer]- All Rights Reserved Reading location - IP/workstation name: [email or web address]
[2020-03-19 15:39] LABS: ERYTHROCYTE SEDIMENTATION RATE 80 mm/hr (0-15)
== END ==
LOC: WC 13:16
PROVIDERS: ATTEND Nurse Practitioner Family
DX: L89.314 Pressure ulcer of right buttock, stage 4 (principal); L89.324 Pressure ulcer of left buttock, stage 4
CPT/HCPCS: 36415; 72170; 80053; 85025; 85652; 86140

== ENCOUNTER → 2020-05-28 | Outpatient (CLI) | payer MEDICAID ==
[2020-05-28 17:34] LABS: ABSOLUTE EOSINOPHILS # (AUTO) 0.1 10^3/uL (0.0-0.6); ABSOLUTE LYMPHOCYTES (AUTO) 1.1 10^3/uL (0.5-4.7); ABSOLUTE MONOCYTES (AUTO) 0.9 10^3/uL (0.1-1.4); ABSOLUTE NEUT (AUTO) 5.2 10^3/uL (1.7-8.2); BASOPHILS % (AUTO) 0.4 % (0-2); EOSINOPHILS % (AUTO) 1.6 % (0-6); HEMATOCRIT 28.4 % (37.9-51.0); LYMPHOCYTES % (AUTO) 15.3 % (13-45); MEAN CORPUSCULAR HEMOGLOBIN 24.3 pg (27.0-33.4); MEAN CORPUSCULAR HGB CONC 31.8 g/dL (32.0-36.0); MEAN CORPUSCULAR VOLUME 77 fl (80-97); MONOCYTES % (AUTO) 12.3 % (3-13); PLATELET COUNT 603 10^3/uL (150-450); RED BLOOD COUNT 3.71 10^6/uL (4.35-5.55); RED CELL DISTRIBUTION WIDTH 19.2 % (11.5-14.0); SEGMENTED NEUTROPHILS % (AUTO) 70.4 % (42-78); TOTAL CELLS COUNTED % (AUTO) 100 %; WHITE BLOOD COUNT 7.4 10^3/uL (4.0-10.5)
[2020-05-28 17:55] LABS: ALBUMIN 3.1 g/dL (3.5-5.0); ALKALINE PHOSPHATASE 94 U/L (38-126); ANION GAP 7 (5-19); ASPARTATE AMINO TRANSFERASE 17 U/L (17-59); BILIRUBIN,TOTAL 0.3 mg/dL (0.2-1.3); BLOOD UREA NITROGEN 9 mg/dL (7-20); C-REACTIVE PROTEIN 78.4 mg/L (<10.0); CALCIUM 8.4 mg/dL (8.4-10.2); CARBON DIOXIDE 26 mmol/L (22-30); CHLORIDE 102 mmol/L (98-107); GLUCOSE 80 mg/dL (75-110); POTASSIUM 4.4 mmol/L (3.6-5.0); TOTAL PROTEIN 7.1 g/dL (6.3-8.2)
--- NOTE | 2020-05-28 18:17 | RADIOLOGY REPORT (SQ) ---
EXAM DESCRIPTION: PELVIS AP IMAGES COMPLETED DATE/TIME: 05/28/2020 5:05 pm REASON FOR STUDY: PRESSURE ULCER OF RIGHT BUTTOCK L89.314 PRESSURE ULCER OF RIGHT BUTTOCK, STAGE 4 L89.324 PRESSURE ULCER OF LEFT BUTTOCK, STAGE 4 G82.20 PARAPLEGIA, UNSPECIFIED COMPARISON: 03/19/2020 NUMBER OF VIEWS: One view TECHNIQUE: AP Pelvis LIMITATIONS: Right Side. FINDINGS: MINERALIZATION: Normal. HIPS: Degenerative joint changes in both hips. PELVIS AND SACRUM: No acute fracture or dislocation. No worrisome bone lesions. PUBIS AND ISCHIUM: Mild sclerotic changes in the left ischium. LOWER LUMBAR SPINE: No significant findings as visualized. SOFT TISSUES: There is a pocket of gas between the proximal right femur and the ischium. OTHER: No other significant finding. IMPRESSION: 1. Possible healing of the left ischium. 2. Possible herniated bowel in the right. 3. Degenerative joint disease in the hips. COMMENT: Pelvic fractures are often occult on plain radiographs. If strong clinical suspicion for f racture, recommend CT or MR. TECHNICAL DOCUMENTATION: JOB ID: [id number] Hernia bowel 2011 [employer] All Rights Reserved Reading location - IP/workstation name: [email or web address]
[2020-05-28 18:20] LABS: ERYTHROCYTE SEDIMENTATION RATE 66 mm/hr (0-15)
== END ==
LOC: OD 16:36
PROVIDERS: ATTEND Nurse Practitioner Family
DX: L89.314 Pressure ulcer of right buttock, stage 4 (principal); L89.324 Pressure ulcer of left buttock, stage 4; G82.20 Paraplegia, unspecified; M16.0 Bilateral primary osteoarthritis of hip
CPT/HCPCS: 36415; 72170; 80053; 85025; 85652; 86140

== ENCOUNTER → 2020-06-11 | Outpatient (CLI) | payer MEDICAID ==
--- NOTE | 2020-06-11 15:22 | RADIOLOGY REPORT (SQ) ---
EXAM DESCRIPTION: CT ABD/PELVIS NO ORAL OR IV IMAGES COMPLETED DATE/TIME: 06/11/2020 1:04 pm REASON FOR STUDY: L89.314 PRESSURE ULCER OF RIGHT BUTTOCK, STAGE 4 L89.314 PRESSURE ULCER OF RIGHT BUTTOCK, STAGE 4 COMPARISON: 11/26/2019 TECHNIQUE: CT scan of the abdomen and pelvis performed without intravenous or oral contrast. Images reviewed with lung, soft tissue, and bone windows. Reconstructed coronal and sagittal MPR images revi ewed. All images stored on PACS. All CT scanners at this facility use dose modulation, iterative reconstruction, and/or weight based d osing when appropriate to reduce radiation dose to as low as reasonably achievable (ALARA). [facility]: Dose Right [facility]: CareDose [facility]: Dose Right [facility]: Teradose 4D [facility]: Olocode RADIATION DOSE: CT Rad equipment meets quality standard of care and radiation dose reduction techniq ues were employed. CTDIvol: 7.5 mGy. DLP: 409 mGy-cm.mGy. LIMITATIONS: None. FINDINGS: LOWER CHEST: No significant findings. No nodules or infiltrates. NON-CONTRASTED LIVER, SPLEEN, ADRENALS: Evaluation limited by lack of IV contrast. No identified sign ificant masses. PANCREAS: No masses. No peripancreatic inflammatory changes. GALLBLADDER: Surgically absent. RIGHT KIDNEY AND URETER: No suspicious masses. Assessment limited by lack of IV contrast. No signif icant calcifications. No hydronephrosis or hydroureter. LEFT KIDNEY AND URETER: No suspicious masses. Assessment limited by lack of IV contrast. No signifi cant calcifications. No hydronephrosis or hydroureter. AORTA AND RETROPERITONEUM: IVC filter. BOWEL AND PERITONEAL CAVITY: No obvious masses or inflammatory changes. No free fluid. APPENDIX: Not visualized. PELVIS, BLADDER, AND ABDOMINAL WALL:Bilateral sacral decubitus. BONES: Sclerosis in the ischial tuberosities nonspecific but consistent with chronic osteomyelitis. No pathologic fracture. Metal projectile in the L2 vertebral body. Chronic calcifications in the sp inal canal. OTHER: No other significant finding. IMPRESSION: Bilateral sacral decubitus. Sclerosis ischial tuberosities nonspecific but cannot exclu de chronic osteomyelitis. COMMENT: Quality ID # [id number]: Final reports with documentation of one or more dose reduction techniques (e.g., Automated exposure control, adjustment of the mA and/or kV according to patient size, use of iterative reconstruction technique) TECHNICAL DOCUMENTATION: JOB ID: [id number] 2010 [employer]- All Rights Reserved Reading location - IP/workstation name: [email or web address]
== END ==
LOC: RAD 12:55
PROVIDERS: ATTEND Nurse Practitioner Family
DX: L89.314 Pressure ulcer of right buttock, stage 4 (principal)
CPT/HCPCS: 74176

== ENCOUNTER → 2020-08-20 | Outpatient (CLI) | payer MEDICAID ==
--- NOTE | 2020-08-20 15:41 | RADIOLOGY REPORT (SQ) ---
EXAM DESCRIPTION: PELVIS AP IMAGES COMPLETED DATE/TIME: 08/20/2020 3:30 pm REASON FOR STUDY: PRESSURE ULCER OF RT/LT BUTTOCK STAGE 4 L89.314 PRESSURE ULCER OF RIGHT BUTTOCK, STAGE 4 L89.324 PRESSURE ULCER OF LEFT BUTTOCK, STAGE 4 G82.20 PARAPLEGIA, UNSPECIFIED COMPARISON: 05/28/2020 NUMBER OF VIEWS: One view TECHNIQUE: AP Pelvis LIMITATIONS: None. FINDINGS: MINERALIZATION: Normal. HIPS: No acute fracture or dislocation. No worrisome bone lesions. PELVIS AND SACRUM: No acute fracture or dislocation. No worrisome bone lesions. PUBIS AND ISCHIUM: Sclerotic changes in both inferior pubic rami left greater than right. On the rig ht there is lucency along the lateral margin of the ischial tuberosity as well this appears new from prior study. LOWER LUMBAR SPINE: No significant findings as visualized. SOFT TISSUES: No findings. OTHER: No other significant finding. IMPRESSION: Sclerotic changes in both inferior pubic rami stable from prior exam. Lucency along the right ischial tuberosity new from prior study suspicious for osteomyelitis. COMMENT: Pelvic fractures are often occult on plain radiographs. If strong clinical suspicion for f racture, recommend CT or MR. TECHNICAL DOCUMENTATION: JOB ID: [id number] 2010 [employer]- All Rights Reserved Reading location - IP/workstation name: [email or web address]
[2020-08-20 16:39] LABS: ABSOLUTE EOSINOPHILS # (AUTO) 0.3 10^3/uL (0.0-0.6); ABSOLUTE LYMPHOCYTES (AUTO) 1.2 10^3/uL (0.5-4.7); ABSOLUTE MONOCYTES (AUTO) 0.9 10^3/uL (0.1-1.4); BASOPHILS % (AUTO) 0.4 % (0-2); EOSINOPHILS % (AUTO) 4.9 % (0-6); HEMOGLOBIN 10.7 g/dL (13.5-17.0); LYMPHOCYTES % (AUTO) 18.6 % (13-45); MEAN CORPUSCULAR HEMOGLOBIN 27.4 pg (27.0-33.4); MEAN CORPUSCULAR HGB CONC 32.4 g/dL (32.0-36.0); MEAN CORPUSCULAR VOLUME 85 fl (80-97); MONOCYTES % (AUTO) 14.4 % (3-13); PLATELET COUNT 495 10^3/uL (150-450); RED BLOOD COUNT 3.89 10^6/uL (4.35-5.55); RED CELL DISTRIBUTION WIDTH 16.7 % (11.5-14.0); SEGMENTED NEUTROPHILS % (AUTO) 61.7 % (42-78); TOTAL CELLS COUNTED % (AUTO) 100 %; WHITE BLOOD COUNT 6.6 10^3/uL (4.0-10.5)
[2020-08-20 17:08] LABS: ALBUMIN 3.6 g/dL (3.5-5.0); ALKALINE PHOSPHATASE 112 U/L (38-126); ANION GAP 9 (5-19); ASPARTATE AMINO TRANSFERASE 17 U/L (17-59); BILIRUBIN,DIRECT 0.4 mg/dL (0.0-0.4); BILIRUBIN,TOTAL 0.6 mg/dL (0.2-1.3); BLOOD UREA NITROGEN 9 mg/dL (7-20); CALCIUM 8.7 mg/dL (8.4-10.2); CARBON DIOXIDE 30 mmol/L (22-30); CHLORIDE 99 mmol/L (98-107); GLUCOSE 77 mg/dL (75-110); POTASSIUM 3.9 mmol/L (3.6-5.0); TOTAL PROTEIN 7.5 g/dL (6.3-8.2)
[2020-08-20 17:20] LABS: ERYTHROCYTE SEDIMENTATION RATE 48 mm/hr (0-15)
== END ==
LOC: WC 14:53
PROVIDERS: ATTEND Nurse Practitioner Family
DX: L89.314 Pressure ulcer of right buttock, stage 4 (principal); L89.324 Pressure ulcer of left buttock, stage 4; G82.20 Paraplegia, unspecified
CPT/HCPCS: 36415; 72170; 80053; 85025; 85652; 86140